=== PATIENT | female | born 1945 | race African-American/Black ===

== ENCOUNTER 2019-02-27 09:20 | Emergency (ER) | payer BC, MEDICAID ==
[~2019-02-27] VITALS: Ht 165.1 cm; Wt 100.0 kg
[2019-02-27] MEDS ORDERED: SODIUM CHLORIDE 0.9% 1,000 ML IV ONE (09:44)
[2019-02-27] MEDS ORDERED: KETOROLAC 30MG/ML VIAL IV STA (09:44)
[2019-02-27] MEDS ORDERED: METOCLOPRAMIDE HCL 10MG/2ML VIAL IV ONE (09:45)
[2019-02-27 10:53] VITALS: BP 135/60
== END 2019-02-27 11:45 | disposition home or self-care (01) ==
LOC: ER 09:20
DX: R51 Headache (principal); R42 Dizziness and giddiness; R20.0 Anesthesia of skin; I10 Essential (primary) hypertension; E11.9 Type 2 diabetes mellitus without complications
CPT/HCPCS: 96374; 96375; 99283; J1885; J2765; J7030

== ENCOUNTER 2021-02-18 21:04 | Emergency (ER) | payer MEDICARE, MEDICAID ==
[~2021-02-18] VITALS: Ht 165.1 cm; Wt 100.0 kg
[2021-02-18] MEDS ORDERED: SODIUM CHLORIDE 0.9% 1,000 ML IV ONE (21:45)
[2021-02-18] MEDS ORDERED: ACETAMINOPHEN 325MG TABLET PO STA (21:45)
[2021-02-18 22:48] LABS: BASOPHILS % 0.4 % (0.0-2.0); EOSINOPHILS % 0.7 % (0.0-5.0); HEMATOCRIT. 43.2 % (36.0-48.0); HEMOGLOBIN. 14.3 g/dL (12.0-16.0); LYMPHOCYTES % 26.8 % (20.0-50.0); MEAN CORPUSCULAR HEMOGLOBIN 31.6 pg (28.0-32.0); MEAN CORPUSCULAR VOLUME 95.3 fL (81.0-99.0); MEAN PLATELET VOLUME 8.4 fl (7.4-10.4); MONOCYTES % 3.9 % (2.0-8.0); NEUTROPHILS % 68.2 % (40.0-76.0); PLATELET 245 x1000/uL (130-400); RED BLOOD CELL COUNT 4.54 mill/uL (4.2-5.4)
[2021-02-18 22:51] LABS: CLARITY URINE CLEAR (CLEAR); COLOR URINE YELLOW (YELLOW); KETONES URINE NEGATIVE (NEGATIVE); LEUKOCYTE ESTERASE URINE NEGATIVE (NEGATIVE); NITRITE URINE NEGATIVE (NEGATIVE); OCCULT BLOOD URINE NEGATIVE (NEGATIVE); PH URINE 5.5 (4.5-8.0); PROTEIN URINE NEGATIVE (NEGATIVE); SPECIFIC GRAVITY URINE 1.015 (1.005-1.030); UROBILINOGEN URINE 0.2 E.U./dL (0.2-1.0)
[2021-02-18 22:54] LABS: CHLORIDE 105 mEq/L (98-107)
[2021-02-18] MEDS ORDERED: IBUP-2028 MT (23:39)
[2021-02-19] MEDS ORDERED: KETOROLAC 30MG/ML VIAL IV ONE
[2021-02-19 02:17] VITALS: BP 162/81
== END 2021-02-19 02:29 | disposition home or self-care (01) ==
LOC: ER 21:04
DX: R51.9 Headache, unspecified (principal); M54.9 Dorsalgia, unspecified; I10 Essential (primary) hypertension; E11.9 Type 2 diabetes mellitus without complications; F17.210 Nicotine dependence, cigarettes, uncomplicated; Z98.890 Other specified postprocedural states
CPT/HCPCS: 36415; 70450; 74176; 80053; 81003; 83690; 84484; 85025; 96361; 96374; 99285; J1885; J7030